=== PATIENT | female | born 1965 | race Caucasian/White ===

== ENCOUNTER 2016-12-08 06:54 | Observation (INO) | payer OTHER ==
[2016-12-08] VITALS (10 sets, daily range): BP systolic 108–147; BP diastolic 53–86
[~2016-12-08] VITALS: Ht 167.6 cm; Wt 113.4 kg
[~2016-12-08 06:54] MED LIST: CYAN10005 PO; DULA0.75 SQ; ERGO500027 PO; LEVO75TA PO; LIDOCAINE 2% PF Vial for OR 5 ML VIAL. ONE; METF750T2 PO; MULT1CAP15 PO; OMEP20TA63 PO; PROPOFOL 20 ML IV ONE; ROCURONIUM 100 MG/10 ML VIAL. ONE; SUCCINYLCHOLINE 200 MG/10 ML VIAL. ONE; fentaNYL PF VIAL 100 MCG/2 ML VIAL ONE
[2016-12-08] MEDS ORDERED: HYDROmorphone 2 MG/ML VIAL IV PRN (07:00)
[2016-12-08] MEDS ORDERED: PROCHLORPERAZINE 10 MG/2 ML VIAL. IV PRN (07:00)
[2016-12-08] MEDS ORDERED: IV RINGERS,LACTATED 1000ML 1,000 ML IV SCH (07:00)
[2016-12-08] MEDS ORDERED: fentaNYL PF VIAL 100 MCG/2 ML VIAL IV PRN (07:00)
[2016-12-08] MEDS ORDERED: ONDANSETRON PF 4 MG/2 ML VIAL. IV PRN ×2 (07:00→11:15)
[2016-12-08] MEDS ORDERED: MORPHINE SULFATE 2 MG/ML DISP.SYRIN. IV PRN ×2 (07:00→11:15)
[2016-12-08] MEDS ORDERED: LIDOCAINE 1% 1 ML SYRINGE. ID PRN (07:00)
[2016-12-08] MEDS ORDERED: BUPIVAC MPF-EPI 0.5%-1:200000 30 ML VIAL. ONE (07:46)
[2016-12-08] MEDS ORDERED: ESTROGENS, CONJ VAGINAL CREAM 30GM TUBE. ONE (07:46)
[2016-12-08] MEDS ORDERED: BUPIVACAINE-EPI 0.5%-1:200000 50 ML VIAL. ONE (07:47)
[2016-12-08] MEDS ORDERED: 0.9 % SODIUM CHLORIDE 50 ML VIAL. IJ ONE (07:47)
[2016-12-08] MEDS ORDERED: DESFLURANE 61 TO 120 MINUTES IH ONE (08:52)
[2016-12-08] MEDS ORDERED: DEXAMETHASONE SOD PHOS 20 MG/5 ML VIAL. ONE (08:52)
[2016-12-08] MEDS ORDERED: fentaNYL PF VIAL 100 MCG/2 ML VIAL ONE ×2 (10:03→11:28)
[2016-12-08] MEDS ORDERED: NEOSTIGMINE 10 MG/10 ML VIAL. ONE (10:13)
[2016-12-08] MEDS ORDERED: ONDANSETRON PF 4 MG/2 ML VIAL. ONE (10:13)
[2016-12-08] MEDS ORDERED: GLYCOPYRROLATE 1 MG/5 ML VIAL. ONE (10:13)
[2016-12-08] MEDS ORDERED: FAMOTIDINE 20 MG/2 ML VIAL ONE (10:25)
[2016-12-08] MEDS ORDERED: 0.9 % SODIUM CHLORIDE 10 ML DISP.SYRIN. IV PRN (11:15)
[2016-12-08] MEDS ORDERED: ZOLPIDEM 5 MG TABLET. PO PRN (11:15)
[2016-12-08] MEDS ORDERED: CALCIUM CARBONATE 500 MG TAB.CHEW PO PRN (11:15)
[2016-12-08] MEDS ORDERED: diphenhydrAMINE HCL 25 MG CAPSULE PO PRN (11:15)
[2016-12-08] MEDS ORDERED: LACTULOSE 20 GM/30 ML SOLUTION. PO PRN (11:15)
[2016-12-08] MEDS ORDERED: MAG HYDROX/ALUMINUM HYD/SIMETH 30 ML ORAL.SUSP PO PRN (11:15)
[2016-12-08] MEDS ORDERED: diphenhydrAMINE 50 MG/ML VIAL IV PRN (11:15)
[2016-12-08] MEDS ORDERED: HYDROcodone/APAP 5/325MG 1 TAB TABLET PO PRN (11:15)
[2016-12-08] MEDS ORDERED: MAGNESIUM HYDROXIDE 2,400 MG/30 ML ORAL.SUSP. PO PRN (11:15)
[2016-12-08] MEDS ORDERED: SIMETHICONE 80 MG TAB.CHEW PO PRN (11:15)
[2016-12-08] MEDS ORDERED: NALOXONE 0.4 MG/ML VIAL. IV PRN (11:15)
[2016-12-08] MEDS ORDERED: PROCHLORPERAZINE 10 MG/2 ML VIAL. ONE (11:28)
--- NOTE | 2016-12-08 11:30 | PDOC ---
BRIEF OPERATIVE NOTE Date: Dec 08, 2016 Pre-Op Diagnosis pelvic organ prolapse, symptomatic rectocele and uterine prolapse Post-Op Diagnosis same Procedure Performed LAVH, bilateral salpingectomy, posterior repair Surgeon Dr. Kelly Escobar Reel And Rewinder Operator Dr. Ameena Galindo Anesthesiologist Dr. Dougherty Anesthesia Type: General Blood Loss 400cc IV Fluid 1200cc Urine Output 200cc clear Specimens Obtained cervix, uterus, bilateral tubes, posterior vaginal mucosa Findings enlarged RV uterus, 2 degree uterine prolapse, 3 degree rectocele, short anterior vagina with minimal cystocele so no repair done on cystocele Complications none OPerative Note [id number] KELLY ESCOBAR MD Dec 08, 2016 11:30
[2016-12-08] MEDS: fentaNYL PF VIAL 100 MCG/2 ML VIAL IV PRN ×2 (11:43→11:49)
--- NOTE | 2016-12-08 13:28 | OP ---
DATE OF SURGERY: 12/08/2016 PREOPERATIVE DIAGNOSES: Symptomatic pelvic organ prolapse with a third-degree rectocele, second-degree uterine prolapse, and a small cystocele. PROCEDURE PERFORMED: Laparoscopic-assisted vaginal hysterectomy, bilateral salpingectomy, and a posterior colporrhaphy with perineoplasty. SURGEONS: Marce Wade M.D. and Ameena Galindo M.D. ANESTHESIOLOGIST: Dr. Dougherty. ANESTHESIA: General. ESTIMATED BLOOD LOSS: 400 mL. URINE OUTPUT: 200 mL clear via Whitaker catheter. IV FLUIDS: 1200 mL of crystalloid. SPECIMENS: Cervix, uterus, bilateral tubes and posterior vaginal mucosa. FINDINGS: An enlarged retroverted uterus, second degree uterine prolapse, third degree rectocele. A shortened anterior vagina with minimal cystocele, so no actual repair was done to the cystocele. She already had a bladder sling in and with the shortened anterior vagina, it only gave us less than 1-1.5 cm between the vaginal cuff and where the sling was in and with minimal ____, I did not want to go in and disrupt the sling that was in. So we did not do any kind of any anterior repair, just the posterior repair. COMPLICATIONS: None. DESCRIPTION OF PROCEDURE: This patient was taken to the operating room where general anesthesia was placed. The patient was placed in dorsal lithotomy position in Hank stirrups. The patient's abdomen and vagina were prepped and draped in the normal sterile fashion. At this point, a weighted speculum was placed in the patient's vagina. A single tooth tenaculum was used to grasp the anterior lip of the cervix. A 10 mL of 0.5% Marcaine with epinephrine was used to circumferentially inject around the cervix for both hemodissection and hemostatic purposes later. The Valtchev uterine manipulator was placed through the endocervical os, locked on the single tooth tenaculum and the weighted speculum was then removed. Top gloves were discarded and changed. Attention was then turned to the abdomen, where a supraumbilical skin incision was made with the scalpel. There was a small mole here, which was excised, it was right on our incision line; so it was excised and passed off as well, right above the belly button. A curved Mar clamp was used to dissect through the subcuticular layer to the fascia. The 5 mm Visiport was used to directly enter the abdominal cavity and opening the patient pressure was 8-9 mmHg. At this point, direct abdominal placement was confirmed via the laparoscope. Carbon dioxide gas was used to appropriately insufflate the abdominal cavity to maintain a pressure of 15-16 mmHg. The patient was placed in Trendelenburg position. Right and left lower quadrant ports after transilluminating the abdominal wall making a small incision with a scalpel and then putting the atraumatic 5 mm port through. We did use the balloon ports on these where it went through and a small balloon insufflated on the other side of the abdominal wall with 5 mL of air on both of the right and left lower quadrant ports. At this point, the uterus was actually very difficult to elevate, as it was posterior, like bulge posteriorly and with the prolapse, it was hard to push up and get up as it was very heavy on the back side any way with the extra fibroid and mass and being retroverted and with the prolapse, but we were able to get it up starting at the left round ligament, cauterizing and cutting it with the LigaSure; advanced in a stepwise fashion going down and starting to make the bladder flap anteriorly and then elevating the left tube and taking it as well and then crossing the uterine ovarian pedicle, leaving the left ovary per patient request, as it was normal. There were some small bowel adhesions to the left ovary, but it fell apart and fell away and was not near the uterus at all and then doing the same thing on the right side first starting with the right round ligament, going down and further meeting that bladder flap anteriorly, elevating the right tube and ovary, again right ovary was normal, crossing under the tube above the ovary and the mesosalpinx and then crossing the right ovarian pedicle as well. The uterine vessels were obtained on both sides in going down and hugging the cervix. We were able to go down the left side. The right side was difficult as it was twisting and just in an awkward shape. So, it was decided to go vaginally. At this point, it had started blanching we have gotten the blood supply, both the ovaries were left in place per the patient request and the bladder was down. We decided to go vaginally. So, everything was removed from the abdomen and attention was turned vaginally. At this point, a weighted speculum was placed in the patient's vagina. The single tooth and Valtchev were removed. Thyroid Prabhakar clamps were placed on the anterior and posterior lips of the cervix respectively. A scalpel was used to make a circumferential incision, staying very low on the cervix, as the bladder was not very high up on the cervix and then using an open Ray-Tyree 4 x 4 was used to gently push up the anterior bladder peritoneum. It did push up some, but not all the way at this point, so I left it posteriorly ____. I extended that incision under direct visualization with the Madera scissors and used a 2-0 Vicryl stitch to secure the posterior peritoneum to the vaginal cuff here tagging it with a curved Mar clamp and cutting the needle off and passing it off. The short weighted speculum was removed and replaced with the long weighted Kamran speculum. At this point, curved Sneha clamps x 2 were placed on the patient's left uterosacral ligament. They were doubly clamped with curved Heaneys, cut with Madera scissors and suture ligated x 2 with #0 Vicryl, again and taking the second one through the vaginal cuff securing the uterosacral ligament to the vaginal cuff and tagging it with a straight Mar clamp and cutting and passing the needle off. This was done exactly the same on the patient's right side, double clamping the uterosacrals cutting with Madera scissors and suture ligating x 2 with #0 Vicryl, again taking the second one through the vaginal cuff securing the uterosacral ligament to the vaginal cuff and tagging it with a straight Mar clamp and cutting and passing the needle off. At this point, I was able to take my finger around and get between that anterior adhesion and the anterior part of the uterus and I was able to open this area up safely with my finger right behind it and passing a right angle clamp through here as well delineating that area between the cervix and the uterus, right where the adhesion was. I was able to take it down and get the anterior Jimmy in the anterior cul-de-sac. The right angle clamp was placed around the remaining pedicle on the patient's right side and it was cauterized with the vaginal LigaSure Max; same thing on the left side, the cervix, uterus, and bilateral tubes were delivered in total and passed off for permanent pathology. A sponge stick was used to examine the pedicles and they appear to be dry. I could not find the anterior bladder peritoneum, but I did take that thicker adhesions that we cut that there was right at the bladder flap and used it to take the 2-0 Vicryl through the left uterosacral ligament, posterior peritoneum and right uterosacral ligament, thus closing the peritoneum in a pursestring like fashion. Once this was done, the right and left uterosacral tags were clipped. The cuff was closed in an anterior to posterior running locked fashion with a full length 2-0 Vicryl and tied to the posterior vaginal tag. Once this was done and it was hemostatic, the anterior again very short may be 1-2 cm at most, but not even just that but with the sling in place and not wanting to go near it, it was decided to leave it, fix the posterior defect which was large, at least a third-degree rectocele and see what looked like at the end. So at this point, the Toby's were placed at 4 and 7 o'clock at the introitus. Then, 90 mL of a dilute solution 50 mL of 0.5% Marcaine with epinephrine to 200 mL of injectable saline were used. It was a dilute solution 90 mL was used to inject the perineal body and the posterior defect. A cynthia shaped was taken out with the pickups and the scalpel was used to cut a wedge-shaped out of the perineal body and right inside the introitus and then Metzenbaum scissors were used to gently open up the posterior defect placing Allis clamps along the way. Once this was done, the Metzenbaum scissors and an open Ray-Tyree 4 x 4 was used to sharply and bluntly take down the posterior defect from the posterior vaginal mucosa. Once it was completely reduced, I believe a series of like 10 or 11 interrupted 2-0 Vicryl sutures were placed and tagged along the way and then they went back and reduced the defect and tied them in order again, but they were just first of all placed and tagged and then went back and tied them all in order reducing the defect. It reduced the defect very well several centimeters of extra posterior vaginal mucosa where there are, I only trimmed a few of each side; not wanting to make the vagina any shorter or tighter, but I did trim off some exterior posterior vaginal mucosa and then the posterior defect was closed in a running locked fashion with a full length 2-0 Vicryl. It was such a large defect as it was taken up to the end of the vagina that when I went down, I did use a second suture at the introitus to close the perineal body defect and reapproximate the perineal body and then do the subcutaneous on this and take it back to the vagina like almost the episiotomy repair with the perineoplasty. Once this was done, the vagina looked great and I did not want to do the anterior defect ____ the vagina and again it was short it looked [id number] better, I did use usual vaginal packing with Premarin cream to put below and then all gloves were discarded and changed and attention was turned back above. There was no active bleeding. Both ovaries looked good. Tisseel was placed over the pedicles. Once all this was done after copious irrigation and placing Tisseel and making sure there was no active bleeding, the air was released from the balloon from the right and left lower quadrant ports and these were taken out under direct visualization. These two were hemostatic. Gas was released from the umbilical port. All three port sites were closed with 4-0 nylon at the level of the skin and injected with a total of 10 mL of local. MARCE WADE MD DR: JEREMY/yon JOB#: [id number] / [id number]
[2016-12-08] MEDS: KETOROLAC TROMETHAMINE 30 MG/ML INJ. IV PRN ×2 (14:04→22:16)
[2016-12-08] MEDS ORDERED: metFORMIN XR 500 MG TAB.ER.24H PO SCH (16:30)
[2016-12-08] MEDS: oxyCODONE/APAP 5/325 1 TAB TABLET PO PRN ×2 (17:44→22:12)
[2016-12-08] MEDS: HEPARIN PF for SUB-Q USE 5,000 UNIT/0.5 ML VIAL. SQ SCH (22:23)
[2016-12-09] MEDS: KETOROLAC TROMETHAMINE 30 MG/ML INJ. IV PRN (06:07)
[2016-12-09] MEDS: oxyCODONE/APAP 5/325 1 TAB TABLET PO PRN (06:07)
[2016-12-09] MEDS: HEPARIN PF for SUB-Q USE 5,000 UNIT/0.5 ML VIAL. SQ SCH (06:13)
[2016-12-09 06:34] VITALS: BP 114/73
[2016-12-09] MEDS ORDERED: LEVOTHYROXINE 75 MCG TABLET PO SCH (07:00)
[2016-12-09] MEDS ORDERED: metFORMIN XR 500 MG TAB.ER.24H PO SCH (07:00)
[2016-12-09] MEDS ORDERED: PANTOPRAZOLE 40 MG TABLET.DR. PO SCH (07:30)
[2016-12-09 08:24] LABS: CALCIUM 8.6 mg/dL (8.5-10.1); CREATININE 0.8 mg/dL (0.6-1.0); GFR 75.6; POTASSIUM 4.5 mmol/L (3.5-5.1)
--- NOTE | 2016-12-09 08:48 | PDOC ---
SURGICAL PROGRESS NOTE Subjective Doing well without complaints. Tolerating regular diet without n/v tolerating po pain pills. Catheter out this am but not voided yet wants to go home today Vital Signs Vital Signs Date Time Temp Pulse Resp B/P (MAP) Pulse Ox O2 Delivery O2 Flow Rate FiO2 12/09/16 06:34 97.7 70 20 114/73 (87) 96 Nasal Cannula 1.0 97.7 I&O Intake and Output 12/09/16 07:00 Intake Total 3940 ml Output Total 1700 ml Balance 2240 ml Intake Oral 290 ml IV Total 2100 ml Blood Product IV Normal Saline Flush 650 ml Other 900 ml Output Urine Total 1700 ml PATIENT HAS A DOVE: No General: Alert, Oriented X3, Cooperative, No acute distress HEENT: Atraumatic Heart: Regular rate Abdomen: Soft, No tenderness, Other (all port sites c/d/i) Extremities: No clubbing, No cyanosis, No edema, No tenderness/swelling Skin: No rashes, No breakdown Neuro: Normal speech Psych/Mental Status: Mental status NL, Mood NL Labs Laboratory Tests Test 12/08/16 07:35 12/09/16 07:30 Glucose (Fingerstick) 141 mg/dL (70-99) Hematocrit 39.8 % (36.0-47.0) Sodium Level 140 mmol/L (136-145) Potassium Level 4.5 mmol/L (3.5-5.1) Chloride Level 106 mmol/L (98-107) Carbon Dioxide Level 26 mmol/L (21-32) Anion Gap 8 (6-14) Blood Urea Nitrogen 14 mg/dL (7-20) Creatinine 0.8 mg/dL (0.6-1.0) Estimated GFR (Cockcroft-Gault) 75.6 Glucose Level 145 mg/dL (70-99) Calcium Level 8.6 mg/dL (8.5-10.1) Laboratory Tests Test 12/09/16 07:30 Hematocrit 39.8 % (36.0-47.0) Sodium Level 140 mmol/L (136-145) Potassium Level 4.5 mmol/L (3.5-5.1) Chloride Level 106 mmol/L (98-107) Carbon Dioxide Level 26 mmol/L (21-32) Anion Gap 8 (6-14) Blood Urea Nitrogen 14 mg/dL (7-20) Creatinine 0.8 mg/dL (0.6-1.0) Estimated GFR (Cockcroft-Gault) 75.6 Glucose Level 145 mg/dL (70-99) Calcium Level 8.6 mg/dL (8.5-10.1) I have reviewed the following labs, vitals, nursing Endocrine: Diabetes Assessment/Plan POD#1 s/p LAVH/bilateral salpingectomy/ rectocele repair with perineoplasty Routine po care d/c to home later today Keep scheduled appt with me in one week percocet-written ok for otc motrin NO driving while on narcotic pain pills instructed to start colace call or return sooner for any questions or concerns not limited to but including : pain unrelieved with pain pills, increased or unexplained vaginal bleeding or T>100.4 Problems: MARCE ESCOBAR MD Dec 09, 2016 08:48
--- NOTE | 2016-12-09 08:50 | PDOC3 ---
Discharge Summary Visit Information Date of Admission: Dec 08, 2016 Date of Discharge: Dec 09, 2016 Final Diagnosis Pelvic organ prolapse with symptomatic rectocele Brief Hospital Course Allergies Allergies Coded Allergies Type Severity Reaction Last Updated Verified No Known Drug Allergies 12/06/16 No Vital Signs Vital Signs Date Time Temp Pulse Resp B/P (MAP) Pulse Ox O2 Delivery O2 Flow Rate FiO2 12/09/16 06:34 97.7 70 20 114/73 (87) 96 Nasal Cannula 1.0 97.7 Lab Results Laboratory Tests Test 12/08/16 07:35 12/09/16 07:30 Glucose (Fingerstick) 141 mg/dL (70-99) Hematocrit 39.8 % (36.0-47.0) Sodium Level 140 mmol/L (136-145) Potassium Level 4.5 mmol/L (3.5-5.1) Chloride Level 106 mmol/L (98-107) Carbon Dioxide Level 26 mmol/L (21-32) Anion Gap 8 (6-14) Blood Urea Nitrogen 14 mg/dL (7-20) Creatinine 0.8 mg/dL (0.6-1.0) Estimated GFR (Cockcroft-Gault) 75.6 Glucose Level 145 mg/dL (70-99) Calcium Level 8.6 mg/dL (8.5-10.1) Laboratory Tests Test 12/09/16 07:30 Hematocrit 39.8 % (36.0-47.0) Sodium Level 140 mmol/L (136-145) Potassium Level 4.5 mmol/L (3.5-5.1) Chloride Level 106 mmol/L (98-107) Carbon Dioxide Level 26 mmol/L (21-32) Anion Gap 8 (6-14) Blood Urea Nitrogen 14 mg/dL (7-20) Creatinine 0.8 mg/dL (0.6-1.0) Estimated GFR (Cockcroft-Gault) 75.6 Glucose Level 145 mg/dL (70-99) Calcium Level 8.6 mg/dL (8.5-10.1) Brief Hospital Course Ms. Nixon is a 51 old female who presented with symptomatic pelvic organ prolapse. She underwent and LAVH, bilateral salpingectomy with rectocele repair without complications yesterday. She has had an unremarkable postoperative course. She is up in chair eating breakfast with minimal pain, AF with VSS and wanting to go home. Catheter out but has not voided yet, minimal vaginal spotting only with normal labs. Discharge Information Condition at Discharge: Improved Follow Up: Weeks Disposition/Orders: D/C to Home Scheduled Cyanocobalamin (Vitamin B-12) (Vitamin B-12), 1 TAB PO DAILY, (Reported) Dulaglutide (Trulicity), 0.75 MG SQ WEEKLY, (Reported) Ergocalciferol (Vitamin D2) (Vitamin D2), 50,000 UNIT PO WEEKLY, (Reported) Levothyroxine Sodium (Synthroid), 1 TAB PO DAILY, (Reported) Metformin Hcl (Metformin Hcl Er), 750 MG PO BIDAC, (Reported) Multivitamin (Multivitamins), 1 EACH PO DAILY, (Reported) Omeprazole Magnesium (Prilosec Otc), 1 TAB PO DAILY, (Reported) Patient Instructions Patient Instructions POD#1 s/p LAVH/bilateral salpingectomy/ rectocele repair with perineoplasty Routine po care d/c to home later today Keep scheduled appt with me in one week percocet-written ok for otc motrin NO driving while on narcotic pain pills instructed to start colace call or return sooner for any questions or concerns not limited to but including : pain unrelieved with pain pills, increased or unexplained vaginal bleeding or T>100.4 MARCE ESCOBAR MD Dec 09, 2016 08:50
[2016-12-09 10:53] VITALS: BP 146/79
--- NOTE | 2016-12-09 14:54 | PATHOLOGY ---
PATHOLOGY REPORT * * * * * * * * FINAL DIAGNOSIS: Uterus and bilateral fallopian tubes, laparoscopic-assisted vaginal hysterectomy with bilateral salpingectomy: - Leiomyoma, uterine corpus, measuring 3.7 cm in greatest dimension. - Chronic cervicitis with focal squamous metaplasia. - Nabothian cysts, cervix. - Disordered proliferative endometrium. - Status-post bilateral tubal ligation. COMMENT: There is no evidence of malignancy. (JPM:mgr; 12/09/2016) REPORT ELECTRONICALLY SIGNED BY: Mamadou Barnhart M.D. DATE/TIME: 12/09/2016 14:53 * * * * * * * * GROSS PATHOLOGY: The specimen is received in formalin labeled "Jean-Paul [place], uterus, cervix and bilateral tubes". Received is an 8.5 x 6.5 x 4.8 cm 143.2 g uterus with attached cervix. The uterine serosa is pink louie, smooth and glistening. There is a large fibroid distorting the lower uterine segment at the left lateral aspect. The 1.0 x 0.7 cm ovoid cervical os is surrounded by pink louie ectocervical mucosa. The uterus is oriented using the peritoneal reflection and the anterior paracervical margin is inked black. The uterus is opened laterally to reveal a reddish brown, somewhat granular appearing endocervical canal measuring up to 2.5 cm in length. The endometrial cavity is markedly distorted by a large fibroid and measures 4.5 cm in length by 0.4 cm in width. The endometrium is reddish brown and granular in appearance and measures 0.3 in thickness. Serial sectioning reveals a yellow louie soft myometrium measuring 2.5 cm in thickness. There are focal areas grossly suspicious for adenomyosis. The fibroid has a pavon white, somewhat whorled appearing cut surface, measuring up to 3.7 cm in greatest dimensions. The left fimbriated fallopian tube measures 5.5 cm in length by 0.4 cm in diameter and has been previously ligated. The serosal surface is inked black. Sectioning reveals a pinpoint, pink louie unremarkable lumen. The right fimbriated fallopian tube measures 5.6 cm in length by 0.7 cm in diameter and has been previously ligated. There is a rubbery, bright yellow, fatty appearing nodule adherent to the serosal surface, measuring 1.5 x 1.0 cm. Sectioning reveals a pink louie, focally slightly dilated lumen. Lgsw sections are submitted as follows: A1- Anterior and posterior cervix A2- Anterior endomyometrium A3- Posterior endomyometrium A4- Lgsw section from single, large fibroid A5- Lgsw sections from bilateral fallopian tubes, left differentially inked. (JPM; 12/08/16) INITIAL CPT CODE(S): 83249 Professional services [place] [facility] [place] [address] Technical services performed by [facility] at [address] [place] [address], [address], [place] [address]. SPECIMEN(S) RECEIVED: A.Uterus, cervix, bilateral tubes CLINICAL HISTORY: Uterine prolapse, rectocele PATIENT: JEAN-PAUL FRANCE /AGE: 1002/05/1965 (Age: 51) PATIENT #: [id number] ALT CASE #: SPECIMEN COLLECTION DATE: 12/08/2016 SPECIMEN RECEIVED DATE: 12/08/2016 [facility] - [address] [place] [address] - PHONE: [phone] * * * END OF REPORT * * *
== END 2016-12-09 11:01 | disposition home or self-care (01) ==
LOC: SURG 06:54 → 3 NORTH 11:30
PROVIDERS: ADMIT Obstetrics & Gynecology; ATTEND Obstetrics & Gynecology
DX: N81.2 Incomplete uterovaginal prolapse (principal); K66.0 Peritoneal adhesions (postprocedural) (postinfection)
CPT/HCPCS: 36415; 57250; 58552; 80048; 82962; 85014; 86850; 86900; 86901; 88307; 96372; 96374; 96376; C1769; G0378; G0379; J0330; J0780; J1100; J1885; J2405; J2704; J2710; J3010; J3490; J7030; J7120; S0028; J2001